=== PATIENT | female | born 1960 | race Caucasian/White ===

== ENCOUNTER → 2017-02-06 | Outpatient (CLI) | payer OTHER | LOC: FIMAGING 13:03 | DX: Z12.31 Encounter for screening mammogram for malignant neoplasm of breast (principal) | CPT/HCPCS: G0202 ==

== ENCOUNTER 2019-01-21 14:47 | Emergency (ER) | payer OTHER ==
[2019-01-21] MEDS ORDERED: MAG HYDROX/AL HYDROX/SIMETH 30 ML UDCUP PO ONE (15:14)
[2019-01-21] MEDS ORDERED: LIDOCAINE 2% VISCOUS 15 ML UDCUP PO ONE (15:14)
[2019-01-21] MEDS ORDERED: HYOSCYAMINE SULFATE 0.125 MG TAB PO ONE (15:14)
[2019-01-21 15:22] LABS: PLATELET COUNT 298 10^3/uL (150-400)
--- NOTE | 2019-01-21 15:23 | EDPHY ---
H & P Stated Complaint: acute l sided cp/into shoulder/and luq abd Time Seen by Provider: 01/21/19 15:00 HPI/ROS: CHIEF COMPLAINT: Chest pain HISTORY OF PRESENT ILLNESS: 58-year-old female with hypertension presents with chest pain. After eating lunch today, she was sitting at her desk and developed chest pain. The pain radiated up and down her chest, starting in the epigastrium. Pain was constant. She walked over from her office to the emergency department and now the pain has almost completely resolved. No prior similar symptoms. No history of cardiac disease. Exercises regularly and no prior exertional chest pain or shortness of breath. REVIEW OF SYSTEMS: complete 10 point ROS reviewed and is negative except for the noted elements in the HPI - Personal History Current Tetanus Diphtheria and Acellular Pertussis (TDAP): Yes - Medical/Surgical History Hx Asthma: No Hx Chronic Respiratory Disease: No Hx Diabetes: No Hx Cardiac Disease: No Hx Renal Disease: No Hx Cirrhosis: No Hx Alcoholism: No Hx HIV/AIDS: No Hx Splenectomy or Spleen Trauma: No Other PMH: htn - Social History Smoking Status: Light smoker Alcohol Use: Sober Drug Use: None - Physical Exam Exam: General Appearance: Alert, pleasant Eyes: Pupils equal and round, no conjunctival pallor ENT, Mouth: Mucous membranes moist Neck: Normal inspection Respiratory: Lungs are clear to auscultation Cardiovascular: Regular rate and rhythm Gastrointestinal: Abdomen is soft, epigastric tenderness Neurological: A&O, nonfocal exam Skin: Warm and dry Extremities: Normal inspection Psychiatric: Anxious Constitutional: Initial Vital Signs Temperature (C) 36.5 C 01/21/19 14:53 Heart Rate 87 01/21/19 14:53 Respiratory Rate 18 01/21/19 14:53 Blood Pressure 171/87 H 01/21/19 14:53 O2 Sat (%) 96 01/21/19 14:53 O2 Delivery Mode Room Air Allergies/Adverse Reactions: codeine Allergy (Verified 01/21/19 14:52) Home Medications: Medication Instructions Recorded Amlodipine Besylate 01/21/19 Losartan Potassium 01/21/19 Medical Decision Making - Diagnostics EKG Interpretation: EKG interpreted by me reveals normal sinus rhythm, rate 79, no ST or T segment changes. Interpretation: Normal EKG Imaging Results: Chest X-Ray 01/21/19 15:14 Impression: Clear lungs. No acute process. Abdomen Ultrasound 01/21/19 16:18 Impression: Normal study. Findings were discussed with AFSHIN RAYA MD at 17:09, on 01/21/2019. Imaging: I viewed and interpreted images myself ED Course/Re-evaluation: This patient presents with chest pain. Stat EKG reveals no evidence of ischemia or dysrhythmia. troponin normal. Clinical scenario is most suggestive of gastroesophageal reflux. A GI cocktail was given. 1620: Better after GI cocktail, still has mild pain. Abd: soft, mild epig tenderness. Alk phos minimally elevated, GB sono ordered. 1710: Gallbladder ultrasound is normal. Results discussed with the patient. She is pain-free. Heart score 2, low risk for MACE. Shared decision-making, opts to go home, f/u outpt. Differential Diagnosis: Differential diagnosis includes though it is not limited to pneumonia, pneumothorax, pulmonary embolism, aortic dissection, pericarditis, acute coronary syndrome. - Data Points Laboratory Results: Laboratory Results 01/21/19 15:05 01/21/19 15:05 Medications Given: Discontinued Medications Al Hydroxide/Mg Hydroxide (Maalox Susp) 30 ml PO ONCE ONE Stop: 01/21/19 15:15 Last Admin: 01/21/19 15:53 Dose: 30 ml Hyoscyamine Sulfate (Levsin, Hyomax-Sl) 0.25 mg PO ONCE ONE Stop: 01/21/19 15:15 Last Admin: 01/21/19 15:53 Dose: 0.25 mg Lidocaine (Lidocaine 2% Viscous) 15 ml PO ONCE ONE Stop: 01/21/19 15:15 Last Admin: 01/21/19 15:53 Dose: 15 ml Point of Care Test Results: Chemistry 01/21/19 15:47 POC Troponin I 0.00 ng/mL ng/mL (0.00-0.08) Departure - Departure Disposition: Home, Routine, Self-Care Clinical Impression: GERD (gastroesophageal reflux disease) Qualifiers: Esophagitis presence: esophagitis presence not specified Qualified Code(s): K21.9 - Gastro-esophageal reflux disease without esophagitis Condition: Good Instructions: Diet for Stomach Ulcers and Gastritis (ED), Gastroesophageal Reflux Disease (ED) Additional Instructions: Clear liquids tonight. Gradually increase your diet as tolerated. Avoid fattyand spicy foods. If the symptoms recur, take Mylanta. Take Prilosec [id number] as directed for 3 weeks. Return for worsening symptoms or any concerns. Referrals: JAYME ROCKWELL [Other] - 2-3 days, call for appt. (Call to make an appointment.)
[2019-01-21 17:51] VITALS: BP 153/87
--- NOTE | 2019-01-21 18:32 | CPEKG ---
Test Reason : OPEN Blood Pressure : / mmHG Vent. Rate : 079 BPM Atrial Rate : 082 BPM P-R Int : 139 ms QRS Dur : 102 ms QT Int : 406 ms P-R-T Axes : 058 070 062 degrees QTc Int : 466 ms Sinus rhythm Confirmed by Rachel Carbajal ([id number]) on 01/21/2019 6:31:48 PM Referred By: Rachel Carbajal Confirmed By:Rachel Carbajal
== END 2019-01-21 17:49 | disposition home or self-care (01) ==
DX: K21.9 Gastro-esophageal reflux disease without esophagitis (principal); I10 Essential (primary) hypertension; F17.200 Nicotine dependence, unspecified, uncomplicated
CPT/HCPCS: 84484-ER